=== PATIENT | male | born 1995 | race Caucasian/White ===

== ENCOUNTER 2022-02-09 12:01 | Emergency (ER) | payer SELFPAY ==
[~2022-02-09] VITALS: Ht 185.4 cm; Wt 99.0 kg
[2022-02-09 12:13] VITALS: BP 137/96
--- NOTE | 2022-02-09 13:07 | NUR ---
strep swab sent to lab
[2022-02-09] MEDS ORDERED: AMOX-117 PO (14:00)
== END 2022-02-09 14:08 | disposition home or self-care (01) ==
LOC: ER 12:02
DX: J03.90 Acute tonsillitis, unspecified (principal); R55 Syncope and collapse; W19.XXXA Unspecified fall, initial encounter; Y93.89 Activity, other specified; Y92.89 Other specified places as the place of occurrence of the external cause; Y99.8 Other external cause status
CPT/HCPCS: 87081; 87880; 99283